=== PATIENT | male | born 1950 | race African-American/Black ===

== ENCOUNTER 2018-04-11 10:41 | Inpatient (IN) | payer MEDICARE, BC ==
[~2018-04-11] VITALS: Ht 185.4 cm; Wt 75.3 kg
[~2018-04-11 10:41] MED LIST: APIX5TAB PO; AZIT500T3 MT; FURO-151 MT; LOSA25TA3 PO; METO-539 PO
[2018-04-11] MEDS ORDERED: METOPROLOL TARTRATE 5MG/5ML VIAL IV ONE ×2 (12:15→13:30)
[2018-04-11 12:30] LABS: BASOPHILS % 0.8 % (0.0-2.0); HEMATOCRIT. 41.4 % (42.0-52.0); HEMOGLOBIN. 13.6 g/dL (14.0-18.0); LYMPHOCYTES % 14.8 % (20.0-50.0); MEAN CORPUSCULAR HEMOGLOBIN 29.9 pg (28.0-32.0); MEAN CORPUSCULAR VOLUME 91.5 fL (80.0-94.0); MEAN PLATELET VOLUME 10.3 fl (7.4-10.4); NEUTROPHILS % 75.4 % (40.0-76.0); PLATELET 175 x1000/uL (130-400); RED BLOOD CELL COUNT 4.53 mill/uL (4.7-6.1); RED CELL DISTRIBUTION WIDTH 16.5 % (11.6-14.6)
[2018-04-11 12:37] LABS: CHLORIDE 109 mEq/L (98-107)
[2018-04-11 12:39] LABS: INR 1.2; PARTIAL THROMBOPLASTIN TIME 24.7 sec (23.4-31.0); PROTHROMBIN TIME 12.3 sec (9.1-11.1)
[2018-04-11] MEDS ORDERED: AZITHROMYCIN 500 MG in DEXT 5% WATER 250 ML IV SCH (13:30)
[2018-04-11] MEDS ORDERED: CEFTRIAXONE 1 G PREMIX 50 ML IV ONE (13:30)
[2018-04-11 16:00] VITALS: BP 116/94
[2018-04-11 16:28] VITALS: BP 116/94
[2018-04-11] MEDS ORDERED: IPRATROPIUM BROMIDE (0.02%) 0.5MG/2.5ML NEB HHN PRN (16:30)
[2018-04-11] MEDS: FUROSEMIDE 40MG/4ML VIAL IVP SCH (18:03)
[2018-04-11] MEDS: ENOXAPARIN 150MG/ML SYR SUBCUT SCH (18:04)
[2018-04-11 20:00] VITALS: BP 105/82
[2018-04-11] MEDS ORDERED: IOHEXOL-350 100 ML BOTTLE ONE (21:47)
[2018-04-12] VITALS (7 sets, daily range): BP systolic 97–133; BP diastolic 76–107
[2018-04-12] MEDS: DILTIAZEM HCL 30MG TABLET PO SCH ×3 (01:30→12:00)
[2018-04-12] MEDS: ENOXAPARIN 150MG/ML SYR SUBCUT SCH ×2 (06:16→17:05)
[2018-04-12] MEDS: FUROSEMIDE 40MG/4ML VIAL IVP SCH ×2 (06:16→17:05)
[2018-04-12 07:59] LABS: BASOPHILS % 0.7 % (0.0-2.0); HEMATOCRIT. 39.1 % (42.0-52.0); HEMOGLOBIN. 12.7 g/dL (14.0-18.0); MEAN CORPUSCULAR HEMOGLOBIN 29.8 pg (28.0-32.0); MEAN CORPUSCULAR VOLUME 91.8 fL (80.0-94.0); MEAN PLATELET VOLUME 10.2 fl (7.4-10.4); NEUTROPHILS % 69.3 % (40.0-76.0); PLATELET 157 x1000/uL (130-400); RED BLOOD CELL COUNT 4.26 mill/uL (4.7-6.1); RED CELL DISTRIBUTION WIDTH 16.8 % (11.6-14.6)
[2018-04-12 08:01] LABS: CHLORIDE 111 mEq/L (98-107)
[2018-04-12] MEDS ORDERED: DILTIAZEM HCL 5MG/ML 5ML VIAL IV NR (09:30)
[2018-04-12] MEDS ORDERED: DIGOXIN 500MCG/2ML AMP IV NR ×2 (09:30→14:15)
[2018-04-12] MEDS: CARVEDILOL 6.25 MG TABLET PO SCH ×2 (14:40→23:35)
[2018-04-12] MEDS ORDERED: CARVEDILOL 6.25 MG TABLET PO SCH (21:00)
[2018-04-13] VITALS: BP 113/78
[2018-04-13 04:00] VITALS: BP 135/101
[2018-04-13] MEDS: ENOXAPARIN 150MG/ML SYR SUBCUT SCH ×2 (07:33→17:29)
[2018-04-13] MEDS: FUROSEMIDE 40MG/4ML VIAL IVP SCH ×2 (07:34→17:29)
[2018-04-13 08:00] VITALS: BP 136/100
[2018-04-13] MEDS: CARVEDILOL 6.25 MG TABLET PO SCH ×2 (08:58→21:22)
[2018-04-13 12:00] VITALS: BP 104/70
[2018-04-13 16:00] VITALS: BP 120/90
[2018-04-13] MEDS ORDERED: IPRATROPIUM/ALBUTEROL 0.5-3(2.5)MG/3ML NEB INH PRN (18:30)
[2018-04-13] MEDS ORDERED: MAGNESIUM/ALUMINUM HYDROXIDE/SIMETHICONE 30ML UDC PO PRN (18:30)
[2018-04-13] MEDS ORDERED: ONDANSETRON HCL 4MG/2ML INJ IV PRN (18:30)
[2018-04-13] MEDS ORDERED: NA PHOS,M-B/NA PHOS,DI-BA ENEMA 118ML PR PRN (18:30)
[2018-04-13] MEDS ORDERED: ACETAMINOPHEN 650MG/20.3ML UDC GT PRN (18:30)
[2018-04-13] MEDS ORDERED: DIPHENHYDRAMINE 50MG/ML VIAL IV PRN (18:30)
[2018-04-13] MEDS ORDERED: ACETAMINOPHEN 325MG TABLET PO PRN (18:30)
[2018-04-13] MEDS ORDERED: ACETAMINOPHEN 650MG SUPP PR PRN (18:30)
[2018-04-13] MEDS ORDERED: CLONIDINE 0.1MG TABLET PO PRN (18:30)
[2018-04-13 20:00] VITALS: BP 116/73
[2018-04-13] MEDS: SODIUM CHLORIDE 0.9% INJ 3ML FLUSH IVF SCH (21:22)
[2018-04-14] VITALS: BP 115/82
[2018-04-14 04:00] VITALS: BP 144/88
[2018-04-14] MEDS: SODIUM CHLORIDE 0.9% INJ 3ML FLUSH IVF SCH ×2 (06:06→15:48)
[2018-04-14] MEDS: ENOXAPARIN 150MG/ML SYR SUBCUT SCH (06:06)
[2018-04-14] MEDS: FUROSEMIDE 40MG/4ML VIAL IVP SCH ×2 (06:25→15:48)
[2018-04-14 07:09] LABS: BASOPHILS % 1.3 % (0.0-2.0); EOSINOPHILS % 5.4 % (0.0-5.0); HEMATOCRIT. 38.3 % (42.0-52.0); HEMOGLOBIN. 12.6 g/dL (14.0-18.0); LYMPHOCYTES % 23.9 % (20.0-50.0); MEAN CORPUSCULAR HEMOGLOBIN 29.9 pg (28.0-32.0); MEAN CORPUSCULAR VOLUME 90.7 fL (80.0-94.0); MEAN PLATELET VOLUME 9.9 fl (7.4-10.4); MONOCYTES % 10.3 % (2.0-8.0); NEUTROPHILS % 59.1 % (40.0-76.0); PLATELET 166 x1000/uL (130-400); RED BLOOD CELL COUNT 4.22 mill/uL (4.7-6.1); RED CELL DISTRIBUTION WIDTH 16.1 % (11.6-14.6)
[2018-04-14 07:30] LABS: CHLORIDE 110 mEq/L (98-107)
[2018-04-14 07:38] LABS: LDL CHOLESTEROL 44 mg/dL (5-100)
[2018-04-14 07:40] LABS: HDL CHOLESTEROL 50 mg/dL (40-59)
[2018-04-14 07:53] LABS: CLARITY URINE CLEAR (CLEAR); COLOR URINE YELLOW (YELLOW); KETONES URINE NEGATIVE (NEGATIVE); LEUKOCYTE ESTERASE URINE NEGATIVE (NEGATIVE); NITRITE URINE NEGATIVE (NEGATIVE); OCCULT BLOOD URINE NEGATIVE (NEGATIVE); PH URINE 7.5 (4.5-8.0); PROTEIN URINE TRACE (NEGATIVE); SPECIFIC GRAVITY URINE 1.021 (1.005-1.030)
[2018-04-14 08:00] VITALS: BP 112/90
[2018-04-14 08:48] LABS: *AMPHETAMINES SCREEN URINE NEGATIVE (NEGATIVE); *BARBITURATES SCREEN URINE NEGATIVE (NEGATIVE); *BENZODIAZEPINES SCREEN URINE NEGATIVE (NEGATIVE); *COCAINE SCREEN URINE NEGATIVE (NEGATIVE); CANNABINOID URINE SCREEN NEGATIVE (NEGATIVE); METHADONE URINE SCREEN NEGATIVE (NEGATIVE); OPIATES URINE SCREEN NEGATIVE (NEGATIVE)
[2018-04-14 08:49] LABS: PHENCYCLIDINE URINE SCREEN NEGATIVE (NEGATIVE)
[2018-04-14] MEDS: CARVEDILOL 6.25 MG TABLET PO SCH (08:56)
[2018-04-14 12:00] VITALS: BP 114/69
[2018-04-14] MEDS ORDERED: FURO-151 MT (12:32)
[2018-04-14 15:18] VITALS: BP 106/66
[2018-04-14] MEDS ORDERED: FURO-151 PO (15:26)
[2018-04-14] MEDS ORDERED: RIVAROXABAN 20 MG TABLET PO SCH (17:00)
== END 2018-04-14 16:10 | disposition home or self-care (01) | DRG 291 ==
LOC: ER 11:14 → ENRESERV 14:22 → 8WST 15:13 → EDBEDREQTM 15:17 → EDBEDREQ 15:17 → EDBEDREQSVC 15:17
PROVIDERS: ADMIT Family Medicine; ATTEND Family Medicine
DX: I11.0 Hypertensive heart disease with heart failure (principal); J18.9 Pneumonia, unspecified organism; J96.00 Acute respiratory failure, unspecified whether with hypoxia or hypercapnia; Z68.41 Body mass index [BMI] 40.0-44.9, adult; I50.23 Acute on chronic systolic (congestive) heart failure; I42.9 Cardiomyopathy, unspecified; E66.9 Obesity, unspecified; N50.89 Other specified disorders of the male genital organs; I48.91 Unspecified atrial fibrillation; Z59.0 Homelessness; Z87.891 Personal history of nicotine dependence; Z79.01 Long term (current) use of anticoagulants
CPT/HCPCS: 36415; 71045; 71275; 80048; 80061; 80305; 83605; 83735; 83880; 84484; 93005; 93970; 96374; 96375; 96376; 99285; J0456; J0696; J1160; J1650; J1940; J3490; J7060; Q9967